=== PATIENT | male | born 2000 ===

== ENCOUNTER 2019-10-11 21:50 | Emergency (ER) | payer SELFPAY ==
[2019-10-11 21:52] VITALS: BP 143/92; PULSE 101; RESP 20; TEMP 37.2; O2SAT 98
--- NOTE | 2019-10-12 00:05 | ED_ITS ---
HPI - URI/Sore Throat General Chief Complaint: Upper Respiratory Symptoms Stated Complaint: SORE THROAT FEVER Time Seen by Provider: 10/11/19 23:52 Source: patient Mode of arrival: Ambulatory Limitations: no limitations History of Present Illness HPI Narrative: The patient has been ill for 3 days with fever, a sore throat. He denies cough. He does have right ear pain. He does hoarseness, but has pain on the left side when he swallows. He he is a non-smoker. He has no chronic ENT complaints. He has a history of asthma. He has no current GI symptoms. He has no rashes. He is otherwise healthy. He works in the [employer] industry. Related Data Previous Rx's Medication Instructions Recorded amoxicillin 500 mg PO TID 10 Days #30 cap 10/12/19 Allergies Allergy/AdvReac Type Severity Reaction Status Date / Time No Known Drug Allergies Allergy Verified 10/11/19 21:54 Review of Systems Review of Systems ROS Unobtainable: All systems reviewed & are unremarkable except as noted in HPI and below Constitutional Constitutional: Denies chills, Reports fever(s) and Denies weakness Eyes Eyes: Denies change in vision and Denies loss of vision ENT Ears, Nose, Mouth, and Throat: Denies change in voice, Reports neck pain and Reports sore throat Cardiovascular Cardiovascular: Denies chest pain, Denies lightheadedness, Denies dyspnea and Denies orthopnea Respiratory Respiratory: Denies cough, Denies dyspnea and Denies wheezing Gastrointestinal Gastrointestinal: Denies abdominal pain, Denies nausea and Denies vomiting Musculoskeletal Musculoskeletal: Denies back pain and Reports neck pain Neurologic Neurologic: Denies loss of vision and Denies weakness Allergic/Immunologic Allergic/Immunologic: Denies wheezing Patient History Medical History (Updated 10/12/19 @ 00:12 by Ron Crawford MD) No acute medical problems (Acute) Surgical History (Updated 10/12/19 @ 00:08 by Ron Crawford MD) No significant past surgical history (Acute) Social History Smoking Status: Never smoker Smoking Status: Never smoker Substance Use Type: marijuana Exam Initial Vital Signs Initial Vital Signs: Vital Signs Temperature 99.0 F 10/11/19 21:52 Pulse Rate 101 H 10/11/19 21:52 Respiratory Rate 20 10/11/19 21:52 Blood Pressure 143/92 H 10/11/19 21:52 Pulse Oximetry 98 10/11/19 21:52 Const General: cooperative and well developed Nutritional Appearance: well nourished Orientation: alert, awake, oriented x3 and not confused [facility] Head: normocephalic and atraumatic Ears: external ears normal and TM's normal bilaterally Nose: external nose normal and nares normal Face and sinus: normal facial exam and sinuses tender Mouth: oral mucosae normal and lip normal Throat: uvula midline and posterior oropharynx abnormal (Erythema with exudate) Eyes General: appearance normal, both eyes and all related structures Eyelids: eyelids normal Conjunctivae: conjunctivae normal Sclera: sclerae normal Pupils: PERRL EOM: EOM intact bilaterally Neck Neck: normal visual inspection, trachea midline, lymphadenopathy and No midline deformity Resp Effort & Inspection: normal respiratory effort and able to speak in complete sentences Auscultation: clear to auscultation bilaterally, no rales, no rhonchi and no wheezes Cardio Rate: regular rate Rhythm: regular rhythm Heart Sounds: no click, no gallops, no murmurs and no rubs Pulses: normal peripheral pulses Course Course Course Narrative: The patient was given Tylenol for myalgias and sore throat. He was started on amoxicillin for strep throat. Vital Signs Vital signs: Vital Signs - 8 hr 10/11/19 21:52 Temperature 99.0 F Pulse Rate 101 H Respiratory Rate 20 Blood Pressure 143/92 H Pulse Oximetry 98 MDM - URI/Sore Throat Lab Data Labs: Point of Care Testing Rapid Strep A Positive Discharge Plan Departure Patient Disposition: Home Clinical Impression: Strep throat Instructions: DI for Strep Throat Activity Restrictions/Additional Instructions: Amoxicillin 3 times daily as prescribed. Take the full prescription. Tylenol 2 tabs every 4 hours for pain or fever. Be sure you're drinking plenty fluids and staying well hydrated. I will give a work note for the next 2 days, but you should not return to work until the illness has resolved. Prescriptions: New amoxicillin 500 mg capsule 500 mg PO TID 10 Days Qty: 30 RF: 0 Referrals: Simona Granados MD [Primary Care Provider] - Stand Alone Forms: Work Release Note
[2019-10-12] MEDS: ACETAMINOPHEN 325 MG TABLET 650 MG PO (00:16)
[2019-10-12] MEDS: AMOXICILLIN 250 MG CAPSULE 500 MG PO (00:17)
[2019-10-12 00:22] VITALS: BP 138/81; PULSE 74; RESP 14; O2SAT 99
== END 2019-10-12 00:23 | disposition home or self-care (01) ==
PROVIDERS: Emergency Provider Emergency Medicine; Family Provider Pediatrics; PCP Pediatrics
DX: J02.0 Streptococcal pharyngitis (principal)
CPT/HCPCS: 87880; 99281; 99283